=== PATIENT | female | born 1980 | race Caucasian/White ===

== ENCOUNTER → 2018-08-10 | Outpatient (CLI) | payer OTHER ==
[~2018-08-10] MED LIST: DOXY100C2 PO; HUMIRA; HYDR-690 PO; HYOSCYAMINE; METR500T PO
--- NOTE | 2018-08-10 17:03 | Diagnostic Imaging Report ---
INDICATION: Fall down stairs, pain. FINDINGS: The medial, lateral, and posterior malleoli appear intact. The plafond and talar dome are intact. The articular surface is smooth. The base of the fifth metatarsal is intact. Lateral view shows swelling anteriorly and a probable joint effusion. IMPRESSION: Swelling anteriorly. No fracture or disruption of the ankle mortise. Dictated by: Dictated on workstation # [id number]
== END ==
LOC: RAD FS 16:42
PROVIDERS: ATTEND Family Medicine
DX: M25.572 Pain in left ankle and joints of left foot (principal); M79.89 Other specified soft tissue disorders; W10.9XXA Fall (on) (from) unspecified stairs and steps, initial encounter
CPT/HCPCS: 73610

== ENCOUNTER → 2018-08-26 | Outpatient (CLI) | payer BC ==
--- NOTE | 2018-08-26 10:30 | Diagnostic Imaging Report ---
INDICATION: Left foot fracture, followup. Time of exam: 10:10 AM No prior studies available for comparison. 3 views of the left foot were obtained. Phalanges and metatarsals appear intact. No definite periosteal reaction or stress reaction is seen. Midfoot and hindfoot are unremarkable. No fractures are identified. IMPRESSION: No acute bony abnormality is detected. Dictated by: Dictated on workstation # [id number]
== END ==
LOC: RAD FS 10:06
PROVIDERS: ATTEND Nurse Practitioner
DX: S92.902D Unspecified fracture of left foot, subsequent encounter for fracture with routine healing (principal)
CPT/HCPCS: 73630

== ENCOUNTER → 2018-09-02 | Outpatient (CLI) | payer BC ==
--- NOTE | 2018-09-03 09:07 | Diagnostic Imaging Report ---
Exam: MRI left foot without contrast. Date: September 02, 2018. Indication: 38-year-old female, fall 3 weeks ago. Left ankle and foot pain. Comparison: Left foot radiographs August 26, 2018. Technique: Multiple noncontrast MRI sequences of the left foot were obtained. Findings: There is normal variant congenital fusion of the fifth digit middle and distal phalanges. There is normal bone marrow signal within the included [id number]-an-ixdx of imaging. Specifically, there is no acute fracture, bone contusion, stress reaction, or other bone marrow signal abnormality. The medial and lateral sesamoids are normally positioned. The Lisfranc ligament proper is intact and best illustrated on coronal STIR sequence image 13. There is normal alignment of the metatarsal bases relative to their cuneiform and cuboid articulations. There is no joint effusion. The joint spaces are well preserved. The visualized portions of the pronators longus, posterior flexor tendons, and anterior extensor tendons are intact. The visualized portions of the plantar fascia are intact. There is a partially imaged tibiotalar joint effusion. Please see separately dictated MRI left ankle exam report for further description. Impression: 1. Intact Lisfranc ligament proper. 2. Intact tendons within the included iishr-pd-iied of imaging. 3. No acute fracture, bone contusion, stress reaction, or other marrow signal abnormality at the level of the left foot specifically. 4. Partially imaged tibiotalar joint effusion. Please see separately dictated MRI of left ankle report for further description and for findings at the level of the left ankle on targeted field of view evaluation. Dictated by: Dictated on workstation # [id number]
--- NOTE | 2018-09-03 09:14 | Diagnostic Imaging Report ---
EXAMINATION: Magnetic resonance imaging of the left ankle without contrast. DATE: September 02, 2018. COMPARISON: Left ankle radiographs August 10, 2018. HISTORY: 38-year-old female, fall 3 weeks ago. Left ankle and foot pain. TECHNIQUE: Magnetic Resonance Imaging sequences were performed of the ankle without contrast. [< >] FINDINGS: TENDONS AND LIGAMENTS: The Achilles tendon is unremarkable. The posterior flexor tendons - tibialis posterior, flexor digitorum longus, flexor hallucis longus - are intact. The peroneal tendons - peroneus longus and peroneus brevis - are intact. The anterior extensor tendons - tibialis anterior, extensor hallucis longus and extensor digitorum longus tendons - are intact. The anterior and posterior syndesmotic ligaments are intact. There is thickening and somewhat indistinct appearance of the anterior talofibular and calcaneofibular ligaments compatible with sprain injury. The posterior talofibular ligament is intact. The deep deltoid ligament is intact. The plantar fascia is intact. JOINTS: There is a moderate to large tibiotalar joint effusion and moderate posterior subtalar joint effusion. BONE: There is a small ossification adjacent to the posterior process of the talus which potentially could relate to a minimally displaced fracture of the posterior process of the talus versus os trigonum with bone contusion. There is marrow edema in this ossification in adjacent bone. There is also very prominent marrow edema in the calcaneus near the posterior calcaneal facet and posterior and superior aspect of the calcaneus. There is question of a nondisplaced fracture of the calcaneus at this location perhaps best seen on sagittal T1 sequence image 9 and sagittal STIR sequence image 7 and adjacent sequential images with slight alteration of the cortical contour as well as incomplete visualization of the cortical line of the calcaneus at this location on sagittal STIR sequence image 8. The talar dome is intact. BURSAE AND SOFT TISSUES: There is very prominent soft tissue swelling laterally. There is nonspecific edema in the pre-Achilles fat. IMPRESSION: 1. Sprain injuries of the anterior talofibular and calcaneofibular ligaments. Intact posterior talofibular ligament. 2. Intact deltoid ligament complex and syndesmotic ligaments. 3. Intact tendons. 4. Prominent marrow edema in the posterior and superior calcaneus as described above including near the posterior calcaneal facet compatible with at least bone contusion with question of a nondisplaced fracture at this location. 5. Essentially nondisplaced fracture of the posterior process of the talus versus bone contusion of a normal variant os trigonum. 6. Moderate to large tibiotalar and moderate size posterior subtalar joint effusions. 7. Intact talar dome. Dictated by: Dictated on workstation # [id number]
== END ==
LOC: RAD 15:20
PROVIDERS: ATTEND Nurse Practitioner
DX: S93.412A Sprain of calcaneofibular ligament of left ankle, initial encounter (principal); S93.492A Sprain of other ligament of left ankle, initial encounter; W19.XXXA Unspecified fall, initial encounter
CPT/HCPCS: 73721

== ENCOUNTER → 2018-09-13 | Outpatient (CLI) | payer BC ==
--- NOTE | 2018-09-13 12:25 | Diagnostic Imaging Report ---
PATIENT HISTORY: Fracture of the left calcaneus, sprain of left foot. TECHNIQUE: Three views of the left ankle. COMPARISON: 08/10/2018. MRI from 09/02/2018. FINDINGS: The questionable fracture at the posterior facet of the calcaneus is better evaluated on the prior MRI. No significant displacement is seen radiographically. There is mild posterior soft tissue edema which appears mildly improved. A small tibiotalar joint effusion is improved. The ankle mortise is symmetric, and the talar dome appears intact. IMPRESSION: 1. Questionable fracture at the posterior facet of the calcaneus is better evaluated on the prior MRI. A displaced fracture is not seen radiographically. 2. Decreased soft tissue edema and small left tibiotalar joint effusion. Dictated by: Dictated on workstation # [id number]
--- NOTE | 2018-09-13 12:37 | Diagnostic Imaging Report ---
Indication: Sprained foot. Findings: Hind, mid and forefoot showed no appreciable fracture deformity, no dislocation. The articular surface is smooth. No opaque foreign body. No soft tissue gas. Impression: No acute abnormality to the left foot is demonstrated on three-view series. Dictated by: Dictated on workstation # [id number]
== END ==
LOC: RAD FS 11:46
PROVIDERS: ATTEND Nurse Practitioner
DX: S93.602A Unspecified sprain of left foot, initial encounter (principal)
CPT/HCPCS: 73610; 73630

== ENCOUNTER → 2020-05-31 | Outpatient (CLI) | payer BC ==
--- NOTE | 2020-05-31 11:19 | Diagnostic Imaging Report ---
Indication: Chest wall pain for 2 weeks. Time of Exam: 10:27 AM Comparison: No prior studies are available for comparison. The heart size is normal. The pulmonary vascularity is unremarkable. The lungs are clear. No infiltrate, effusion or pneumothorax is detected. Impression: No acute cardiopulmonary process is detected. Dictated by: Dictated on workstation # [id number]
== END ==
LOC: RAD FS 10:20
PROVIDERS: ATTEND Nurse Practitioner Family
DX: R07.89 Other chest pain (principal)
CPT/HCPCS: 71046

== ENCOUNTER 2020-10-31 19:47 | Emergency (ER) | payer BC ==
[~2020-10-31] VITALS: Ht 175.3 cm; Wt 71.7 kg
[~2020-10-31 19:47] MED LIST changes: +TETRACAINE 0.5% OPHTH SOLN 4 ML BTL (SINGLE DOSE ONLY) ONE
[2020-10-31] MEDS ORDERED: FLUORESCEIN (FLUOR-I-STRIPS) 1 MG STRP ONE (19:48)
[2020-10-31 19:57] VITALS: BP 127/92
[2020-10-31] MEDS ORDERED: BSS 15 ML IR ONE (20:00)
[2020-10-31] MEDS ORDERED: FLUORESCEIN (FLUOR-I-STRIPS) 1 MG STRP OU ONE (20:00)
[2020-10-31] MEDS ORDERED: TETRACAINE 0.5% OPHTH SOLN 4 ML BTL (SINGLE DOSE ONLY) OU ONE (20:00)
--- NOTE | 2020-10-31 20:02 | ED EENT ---
History of Present Illness General Stated Complaint: LT EYE PROBLEMS History of Present Illness Date Seen by Provider: October 31, 2020 Time Seen by Provider: 19:57 Initial Comments 40-year-old female presents with left eye injury. States she was gardening and accidentally poked herself in her left eye with a kulwant medrano branch. Denies any other pain or injury. Pain in left thigh, increased tearing, light sensitivity and decreased vision. Allergies and Home Medications Allergies Coded Allergies: metoclopramide HCl (Verified Adverse Reaction, Intermediate, CONVULSIONS/TREMORS, 06/05/11) Sulfa (Sulfonamide Antibiotics) (Verified Adverse Reaction, Mild, VOMITING, 06/05/11) codeine (Verified Adverse Reaction, Mild, VOMITING, 06/05/11) Home Medications Doxycycline Hyclate 100 Mg Capsule, 1 EACH PO BID Prescribed by: SHARI CUEVAS on 06/05/111937 Hydrocodone Bit/Ibuprofen 1 Tab Tablet, 1 EACH PO Q6HR Prescribed by: SHARI CUEVAS on 06/05/111937 Metronidazole 500 Mg Tab, 1 EACH PO BID Prescribed by: SHARI CUEVAS on 06/05/111937 Patient Home Medication List Home Medication List Reviewed: Yes Review of Systems Review of Systems Constitutional: no symptoms reported Eyes: See HPI, Blurred Vision, Inflammation, Pain, Photophobia; Denies Contact Lenses Gastrointestinal: No abdominal pain, No nausea, No vomiting Past Rqppvxk-Mslfcb-Pfrrjv Hx Past Med/Social Hx: Reviewed Nursing Past Med/Soc Hx Physical Exam Vital Signs Vital Signs - First Documented 10/31/20 19:57 Temp 36.7 Pulse 85 Resp 20 B/P (MAP) 127/92 (104) O2 Delivery Room Air Height, Weight, BMI Height: '" Weight: lbs. oz. kg; BMI Method: General Appearance: WD/WN, no apparent distress Eyes: left eye corneal abrasion; bilateral eye PERRL, bilateral eye EOMI Neurologic/Psychiatric: alert, normal mood/affect, oriented x 3 Skin: normal color, warm/dry Procedures/Interventions Eye : Location: left eye Eye Irrigated w/ Saline (ccs): 50 Anesthesia (gtts): Tetracaine Progress/Procedure Conclusion small fluorescein uptake central left cornea c/w abrasion. NO obvious globe injury. Progress/Results/Core Measures Results/Orders My Orders Orders - BRYCE MAY DO Tetracaine 0.5% Ophth Marine Sdv (Tetracai (10/31/20 20:00) Fluorescein Strips (Ccvas-N-Brawyr) (10/31/20 20:00) Balanced Salt Irrigation Soln (Bss Irrig (10/31/20 20:00) Tetracaine 0.5% Ophth Marine Sdv (Tetracai (10/31/20 19:47) Fluorescein Strips (Jnbgj-L-Qprjqb) (10/31/20 19:48) Erythromycin Ophth Oint (Erythromycin Op (10/31/20 20:13) Medications Given in ED Current Medications Medications Dose Ordered Sig/Pearl Route Start Time Stop Time Status Last Admin Dose Admin Fluorescein Sodium 1 mg ONCE ONCE OU 10/31/20 20:00 10/31/20 20:01 DC 10/31/20 20:00 1 MG Tetracaine HCl 4 ml ONCE ONCE OU 10/31/20 20:00 10/31/20 20:01 DC 10/31/20 20:00 4 ML Vital Signs/I&O 10/31/20 19:57 Temp 36.7 Pulse 85 Resp 20 B/P (MAP) 127/92 (104) O2 Delivery Room Air Departure Impression Primary Impression: Corneal abrasion, left Qualified Codes: S05.02XA - Injury of conjunctiva and corneal abrasion without foreign body, left eye, initial encounter Disposition: HOME, SELF-CARE Condition: Improved Departure-Patient Inst. Decision time for Depature: 20:14 Referrals: [facility] (PCP) Primary Care Physician ALEXI MARIE APRN (Family) Primary Care Physician Patient Instructions: Corneal Abrasion (DC) Add. Discharge Instructions: See your Eye Doctor for re-evaluation tomorrow BRYCE MAY DO October 31, 2020 20:02
[2020-10-31] MEDS ORDERED: ERYTHROMYCIN OPHTH OINT 1 GM (SINGLE USE) TUBE OP STA (20:13)
== END 2020-10-31 20:21 | disposition home or self-care (01) ==
LOC: EDUNIT# 19:47 → ER FS 19:48
DX: S05.02XA Injury of conjunctiva and corneal abrasion without foreign body, left eye, initial encounter (principal); W26.8XXA Contact with other sharp object(s), not elsewhere classified, initial encounter
CPT/HCPCS: 99282

== ENCOUNTER → 2022-05-08 | Day surgery (SDC) | payer BC ==
[~2022-05-08] MED LIST changes: +LIDOCAINE 1% INJ 30 ML (XYLOCAINE) VIAL INJ ONE; -TETRACAINE 0.5% OPHTH SOLN 4 ML BTL (SINGLE DOSE ONLY) ONE
--- NOTE | 2022-05-08 14:53 | Diagnostic Imaging Report ---
INDICATION: Right breast cyst. PROCEDURE: The patient presents for ultrasound-guided aspiration. The patient was brought to the sonographic suite, placed on the table in the supine position. Ultrasound imaging of the right breast was performed to evaluate appropriate entry site. The right breast was then prepped and draped in the usual sterile fashion. A small amount of 1% lidocaine was utilized for local anesthesia. An 18-gauge needle was advanced into the cyst at the 6:00 location of the right breast. Approximately one-half cc of fluid was aspirated. There was collapse of the cyst. Next, 2 core biopsies were obtained through the collapsed cyst utilizing a 14-gauge Achieve needle. A marker clip was then deployed. Hemostasis was obtained using manual compression. The patient tolerated the procedure well and left the Department in stable condition. IMPRESSION: Successful ultrasound-guided cyst aspiration and biopsy of the right breast, as described. Pathology results are currently pending. Dictated by: Dictated on workstation # [id number]
== END ==
LOC: RAD 12:17
PROVIDERS: ATTEND Surgery
DX: N60.21 Fibroadenosis of right breast (principal); N60.41 Mammary duct ectasia of right breast
CPT/HCPCS: 19083; 88112; 88305